=== PATIENT | female | born 1955 | race Caucasian/White ===

== ENCOUNTER 2021-04-22 08:07 | Observation (INO) ==
[2021-04-22] MEDS ORDERED: *HR* OxyCODONE Immed Rel 5 MG TABLET PO PRN (08:33)
[2021-04-22] MEDS ORDERED: *HR* HYDROmorphone PF 0.5 MG/0.5 ML SYRINGE IVP PRN (08:33)
[2021-04-22] MEDS ORDERED: Ondansetron 4 MG/2 ML VIAL IVP PRN ×2 (08:33→14:13)
[2021-04-22] MEDS ORDERED: levoFLOXacin 500 MG/100 ML 500 MG/100 ML BAG IVPB ONE (08:34)
[2021-04-22] MEDS ORDERED: Ringers Solution, Lactated 1,000 ML IVC SCH ×2 (08:45)
[2021-04-22] MEDS ORDERED: Ondansetron 4 MG/2 ML VIAL ONE (09:06)
[2021-04-22] MEDS ORDERED: *HR* Propofol 200 MG/20 ML VIAL IVP ONE (09:06)
[2021-04-22] MEDS ORDERED: *HR* Midazolam HCl 2 MG/2 ML VIAL ONE (09:06)
[2021-04-22] MEDS ORDERED: Lidocaine -MPF 2% 2 ML VIAL ONE (09:06)
[2021-04-22] MEDS ORDERED: *HR* FentaNYL (PF) 100 MCG/2 ML VIAL ONE (09:06)
[2021-04-22] MEDS ORDERED: *HR* Rocuronium Bromide 50 MG/5 ML VIAL ONE (09:24)
[2021-04-22] MEDS ORDERED: Sugammadex Sodium 200 MG/2 ML VIAL IV ONE (09:25)
[2021-04-22] MEDS ORDERED: EPHEDrine 50 MG/ML VIAL ONE (10:07)
[2021-04-22] MEDS ORDERED: Lidocaine/EPI 1:100k 1% 50 ML VIAL ONE (11:48)
[2021-04-22] MEDS ORDERED: *HR* HYDROMORPHONE 2 MG/ML VIAL ONE (12:32)
[2021-04-22] MEDS ORDERED: Ketorolac 15 MG/ML VIAL IVP PRN (14:13)
[2021-04-22] MEDS ORDERED: Dextrose Gel 15 GM/37.5 ML TUBE PO PRN ×2 (14:13)
[2021-04-22] MEDS ORDERED: Naloxone 0.4 MG/ML INJ IVP PRN (14:13)
[2021-04-22] MEDS ORDERED: *HR* Dextrose 50 % in Water (Vial) 50 ML VIAL IVP PRN (14:13)
[2021-04-22] MEDS ORDERED: D5% in Water 1,000 ML IVC PRN (14:13)
[2021-04-22] MEDS ORDERED: *HR* FentaNYL (PF) 100 MCG/2 ML VIAL IVP PRN (16:00)
[2021-04-22] MEDS: 0.9 % Sodium Chloride 1,000 ML IVC SCH (16:33)
[2021-04-22] MEDS: Insulin LISPRO 300 UNITS/3 ML VIAL SUBQ SCH (17:23)
[2021-04-22] MEDS: Acetaminophen IV 1,000 MG/100 ML BAG IVPB SCH (18:29)
[2021-04-23] MEDS: Acetaminophen IV 1,000 MG/100 ML BAG IVPB SCH ×3 (00:11→11:07)
[2021-04-23 07:01] LABS: Hematocrit 37.1 % (35.3-44.9); Hemoglobin 12.1 g/dL (11.5-15.4)
[2021-04-23 07:17] LABS: BUN/Creatinine Ratio 29 (6-26); Blood Urea Nitrogen 19 mg/dL (8-23); Carbon Dioxide 26 mEq/L (23-29); Chloride 102 mEq/L (98-107); Glucose 135 mg/dL (70-105); Osmolality,Calculated 284 (280-300); Sodium 135 mEq/L (136-145); eGFR For African Americans > 60 (> 60); eGFR For Non-African Americans > 60 (> 60)
[2021-04-23] MEDS: Gabapentin 300 MG CAPSULE PO SCH (09:31)
[2021-04-23] MEDS: predniSONE 5 MG TABLET PO SCH (09:31)
[2021-04-23] MEDS: levoFLOXacin 500 MG/100 ML 500 MG/100 ML BAG IVPB SCH (09:32)
[2021-04-23] MEDS: Insulin LISPRO 300 UNITS/3 ML VIAL SUBQ SCH ×3 (10:37→16:54)
[2021-04-24 06:52] VITALS: BP 116/71
[2021-04-24] MEDS: 0.9 % Sodium Chloride 1,000 ML IVC SCH (07:50)
[2021-04-24] MEDS: Insulin LISPRO 300 UNITS/3 ML VIAL SUBQ SCH ×2 (08:03→12:23)
[2021-04-24] MEDS: levoFLOXacin 500 MG/100 ML 500 MG/100 ML BAG IVPB SCH (08:29)
[2021-04-24] MEDS: predniSONE 5 MG TABLET PO SCH (08:30)
[2021-04-24] MEDS: Gabapentin 300 MG CAPSULE PO SCH (08:30)
[2021-04-24] MEDS ORDERED: levoFLOXacin 500 MG TABLET PO SCH (09:15)
[2021-04-29] MEDS ORDERED: *HR* Methotrexate 2.5 MG TABLET PO SCH (09:00)
== END 2021-04-24 13:15 | disposition home or self-care (01) ==
LOC: SAMDAY 08:07 → 3ANU 08:07
PROVIDERS: ADMIT Urology; ATTEND Urology